=== PATIENT | female | born 1975 | race African-American/Black ===

== ENCOUNTER 2017-03-20 17:21 | Emergency (ER) | payer BC ==
[~2017-03-20] VITALS: Ht 172.7 cm; Wt 104.3 kg
[2017-03-20 17:36] VITALS: BP 164/108
[2017-03-20] MEDS ORDERED: NORCO 5-325 TA1 EACH PO (17:52)
[2017-03-20] MEDS ORDERED: NORVASC10 MG PO (18:09)
[2017-03-20] MEDS ORDERED: TOPAMAX50 MG PO (18:10)
[2017-03-20] MEDS ORDERED: PROTONIX40 M1 PO (18:10)
[2017-03-20] MEDS ORDERED: VENLAFAXINE HC150 MG PO (18:11)
[2017-03-20] MEDS ORDERED: DAYSEE 0.15-0.1 EACH PO (18:11)
== END 2017-03-20 18:50 | disposition home or self-care (01) ==
LOC: ER 17:21
DX: L02.411 Cutaneous abscess of right axilla (principal)